=== PATIENT | male | born 1995 | race Caucasian/White ===

== ENCOUNTER 2018-11-02 01:36 | Emergency (ER) | payer MEDICAID ==
[~2018-11-02] VITALS: Ht 172.7 cm; Wt 63.8 kg
[2018-11-02 01:37] VITALS: Ht 172.7 cm; Wt 63.8 kg
[2018-11-02] MEDS ORDERED: KETOROLAC 30 MG INJ IV STA (01:48)
[2018-11-02] MEDS ORDERED: SOD CHLORIDE 0.9% 1,000 ML IV STA (01:48)
[2018-11-02] MEDS ORDERED: ONDANSETRON 4 MG INJ IV STA (01:48)
[2018-11-02] MEDS ORDERED: morphine 4 MG/ML VIAL IV STA (01:48)
--- NOTE | 2018-11-02 02:41 | ERD ---
ER Documentation Chief Complaint Chief Complaint Severe abd pain that started tonight denies n/v/d HPI 23-year-old male presents with complaint of right lower quadrant pain that started this morning. Patient states that he went to another clinic and they gave him 2 pills but the pills made his pain worse. After that patient went and saw the [employer]. Now patient is in the ER. Patient denies having any history of abdominal pain or GI issues. Patient denies any nausea, vomiting, diarrhea, fevers, chills, hematochezia dysuria, hematuria, genital pain. ROS All systems reviewed and are negative except as per history of present illness. Medications Home Meds Active Scripts Polyethylene Glycol* (Miralax*) 17 Gm Powd.pack, 17 GM PO DAILY, #7 Prov:FILIBERTOCYNTHIA 11/02/18 Allergies Allergies: Coded Allergies: No Known Allergy (Unverified , 11/02/18) PMhx/Soc Medical and Surgical Hx: pt denies Medical Hx, pt denies Surgical Hx Hx Alcohol Use: No Hx Substance Use: No Hx Tobacco Use: No Smoking Status: Never smoker FmHx Family History: No diabetes, No coronary disease, No other Physical Exam Vitals Vital Signs Date Temp Pulse Resp B/P (MAP) Pulse Ox O2 O2 Flow FiO2 Time Delivery Rate 11/02/18 98.6 74 16 152/92 98 01:37 (112) Physical Exam Const: No acute distress Head: Atraumatic Eyes: Normal Conjunctiva ENT: Normal External Ears, Nose and Mouth. Neck: Full range of motion. No meningismus. Resp: Clear to auscultation bilaterally Cardio: Regular rate and rhythm, no murmurs Abd: Right lower quadrant tenderness. Right upper quadrant tenderness. Skin: No petechiae or rashes Back: No midline or flank tenderness Ext: No cyanosis, or edema Neur: Awake and alert Psych: Normal Mood and Affect Result Diagram: 11/02/18 0159 11/02/18158 Results 24 hrs Laboratory Tests Test 11/02/18 01:59 White Blood Count 10.6 10^3/ul Red Blood Count 4.64 10^6/ul Hemoglobin 13.6 g/dl Hematocrit 40.9 % Mean Corpuscular Volume 88.1 fl Mean Corpuscular Hemoglobin 29.3 pg Mean Corpuscular Hemoglobin Concent 33.3 g/dl Red Cell Distribution Width 13.3 % Platelet Count 260 10^3/UL Mean Platelet Volume 9.3 fl Immature Granulocytes % 0.300 % Neutrophils % 66.4 % Lymphocytes % 23.2 % Monocytes % 5.9 % Eosinophils % 3.8 % Basophils % 0.4 % Nucleated Red Blood Cells % 0.0 /100WBC Immature Granulocytes # 0.030 10^3/ul Neutrophils # 7.0 10^3/ul Lymphocytes # 2.5 10^3/ul Monocytes # 0.6 10^3/ul Eosinophils # 0.4 10^3/ul Basophils # 0.0 10^3/ul Nucleated Red Blood Cells # 0.0 10^3/ul Urine Color YELLOW Urine Clarity CLEAR Urine pH 6.0 Urine Specific [place] 1.027 Urine Ketones NEGATIVE mg/dL Urine Nitrite NEGATIVE mg/dL Urine Bilirubin NEGATIVE mg/dL Urine Urobilinogen NEGATIVE mg/dL Urine Leukocyte Esterase NEGATIVE Rachel/ul Urine Hemoglobin NEGATIVE mg/dL Urine Glucose NEGATIVE mg/dL Urine Total Protein NEGATIVE mg/dl Sodium Level 143 mmol/L Potassium Level 3.9 mmol/L Chloride Level 107 mmol/L Carbon Dioxide Level 26 mmol/L Anion Gap 10 Blood Urea Nitrogen 19 mg/dl Creatinine 1.35 mg/dl Est Glomerular Filtrat Rate mL/min > 60 mL/min Glucose Level 122 mg/dl Calcium Level 9.0 mg/dl Total Bilirubin 0.8 mg/dl Direct Bilirubin 0.00 mg/dl Indirect Bilirubin 0.8 mg/dl Aspartate Amino Transf (AST/SGOT) 38 IU/L Alanine Aminotransferase (ALT/SGPT) 35 IU/L Alkaline Phosphatase 99 IU/L Total Protein 8.1 g/dl Albumin 4.4 g/dl Globulin 3.70 g/dl Albumin/Globulin Ratio 1.18 Lipase 134 U/L Current Medications Medications Dose Sig/Carmelina Start Time Status Last (Trade) Ordered Route PRN Stop Time Admin Dose Reason Admin Sodium 1,000 ml @ Q1H STAT 11/02/18 DC 11/02/18 Chloride 1,000 mls/hr IV 01:48 11/02/18 02:11 02:47 Morphine 4 mg ONCE STAT 11/02/18 DC 11/02/18 Sulfate IV 01:48 11/02/18 02:06 (morphine) 01:52 Ondansetron 4 mg ONCE STAT 11/02/18 DC 11/02/18 HCl (Zofran IV 01:48 11/02/18 02:06 Inj) 01:52 Ketorolac 30 mg ONCE STAT 11/02/18 DC 11/02/18 Tromethamine IV 01:48 11/02/18 02:06 (Toradol) 01:52 17 gm ONCE ONCE 11/02/18 Polyethylene PO 04:30 11/02/18 Glycol 04:31 (Miralax) Procedures/MDM DIAGNOSTIC IMAGING REPORT Patient: DARREN LOPES : 1995 Age: 23 Sex: M MR #: [id number] DOS: 11/02/18 0148 Ordering MD: CYNTHIA DE LOS SANTOS Location: [facility] Room/Bed: PROCEDURE: ULTRASOUND LIMITED ABDOMEN CLINICAL INDICATION: 23-year-old male with abdominal pain. TECHNIQUE: Multiple sonographic of the right upper quadrant of the abdomen were obtained. The images were reviewed on a PACS workstation. COMPARISON: None. FINDINGS: The pancreas is partially visualized and is otherwise without abnormal echogenicity. The liver displays normal echogenicity. The liver measures 16.2 cm in length. No evidence of intrahepatic biliary ductal dilatation is seen. The portal and hepatic veins are unremarkable. The gallbladder demonstrates no wall thickening, sludge, nor stones. No pericholecystic fluid is seen. The common bile duct measures 3.8 mm and is not dilated. The right kidney displays normal echogenicity. The right kidney measures 10.6 cm in maximal length. No caliectasis or hydronephrosis is seen. No free fluid is seen. IMPRESSION: Unremarkable right upper quadrant abdominal ultrasound. .Julius Green MD, Date Time Electronically viewed and signed by .Julius Green MD, on 11/02/2018 03:46 .M/ CC: CYNTHIA DE LOS SANTOS [id number] DIAGNOSTIC IMAGING REPORT Patient: DARREN LOPES : 1995 Age: 23 Sex: M MR #: [id number] DOS: 11/02/18 0148 Ordering MD: CYNTHIA DE LOS SANTOS Location: [facility] Room/Bed: PROCEDURE: CT ABDOMEN/PELVIS WITHOUT CONTRAST CLINICAL INDICATION: 23-year-old male with right-sided abdominal pain and diarrhea. TECHNIQUE: The study was performed utilizing a GE MagTagpeed VCT 64-slice CT scanner. Direct axial sections were obtained through the abdomen and pelvis without the use of intravenous contrast material. Sagittal and coronal reformations were obtained. One or more of the following dose reduction techniques were utilized: automated exposure control, adjustment of the mA and/or kV according to patient's size, use of iterative reconstruction technique. DICOM images are available. The images were reviewed on a PACS workstation. CTD/vol = 5.06 mGy; Total Exam DLP = 297.81 mGy.cm. COMPARISON: Right upper quadrant ultrasound November 02, 2018 at 02:10 a.m. FINDINGS: There is trace right basilar subsegmental atelectasis.. There is no evidence for significant pleural effusion. The liver has a normal size and contour without focal areas of abnormal density. No intrahepatic nor extrahepatic biliary ductal dilatation is seen. The gallbladder appears to be distended but without evidence for calcified stones, significant wall thickening or pericholecystic fluid. The pancreas is without areas of abnormal attenuation. The spleen is identified and has a normal size without abnormal density. The adrenal glands are unremarkable. The kidneys are without abnormal density. No hydroureteronephrosis nor nephroureterolithiasis is evident. The urinary bladder contains urine. There are multiple small radiopaque foreign bodies within the stomach presumably representing ingested material. There is mild retained stool within the colon without obstruction. The appendix is visualized and is without abnormal thickening or surrounding inflammatory reaction. The prostate is not enlarged. There is no significant free fluid. The aortoiliac vessels are without aneurysmal dilatation. There are bilateral L5 pars interarticularis defects. There is no significant L5-S1 anterolisthesis however there is diffuse disc bulge resulting in moderate bilateral foraminal stenosis. IMPRESSION: 1. Multiple radiopaque foreign bodies within the stomach most likely representing ingested material. 2. No CT evidence for obstructive uropathy or renal calculi. 3. Retained stool without obstruction. 4. No CT evidence for appendicitis. 5. Bilateral L5 pars interarticularis defects with L5-S1 discogenic disease and diffuse disc bulge resulting in moderate bilateral foraminal stenosis. .Julius Green MD, Date Time Electronically viewed and signed by .Julius Green MD, on 11/02/2018 04:02 .M/ CC: CYNTHIA DE LOS SANTOS [id number] MDM: Ultrasound and CT results within normal limits except for some radiopaque foreign body seen in CT. I discussed the case my supervising physician and he stated that the foreign bodies were probably just the pills that he took before hand. In addition Dr. Rodriguez is aware of patient's elevated creatinine time of discharge. Dr. Rodriguez advised that the patient should come back tomorrow for repeat x-ray. Dr. rodriguez explained this to the patient and patient agreed that he would. I have low suspicion for acute coronary syndrome, AAA, mesenteric ischemia, lower lobe pneumonia, DKA, bowel perforation, cholecystitis, choledocholithiasis, ascending cholangitis, hepatic abscess, pancreatitis, PUD, splenic rupture, diverticulitis, pyelonephritis, nephrolithiasis, appendicitis, testicular torsion, acute renal failure. At this time, patient is stable for discharge and outpatient management. I have instructed the patient to follow-up with his/her primary care physician in 1-2 days as well as return tomorrow for follow-up exam. I have discussed with the patient the possibility of needing to see a specialist for further workup and imaging studies if symptoms persist. I have instructed the patient to promptly return to the ER for any new or worsening symptoms including but not limited to increased pain, fever, nausea, vomiting, weakness or LOC. The patient and/or family expressed understanding of and agreement with this plan. All questions were answered. Home care instructions were provided. Communication with patient both during the exam and instructions for discharge were performed with using a theater projectionist . Patient gave verbal confirmation to the practitioner, through the theater projectionist, that they understood everythign that was being said to them. DISCLAIMER: Inadvertent spelling and grammatical errors are likely due to EHR/dictation software use and do not reflect on the overall quality of patient care. Also, please note that the electronic time recorded on this note does not necessarily reflect the actual time of the patient encounter. Departure Diagnosis: Primary Impression: Abdominal pain Abdominal location: right lower quadrant Qualified Codes: R10.31 - Right lower quadrant pain Additional Impression: Elevated serum creatinine Condition: Stable CYNTHIA DE LOS SANTOS Nov 02, 2018 02:41
[2018-11-02] MEDS ORDERED: DICY10CA40 PO (04:11)
[2018-11-02] MEDS ORDERED: POLY17PO6 PO (04:19)
[2018-11-02] MEDS ORDERED: POLYETHYLENE GLYCOL 17 GM PACKET PO ONE (04:30)
[2018-11-02 04:34] VITALS: BP 127/63; PULSE 73; RESP 17
[2018-11-02] MEDS ORDERED: ACET500C5 PO (18:45)
[2018-11-02] MEDS ORDERED: ONDA8TAB14 PO (18:45)
== END 2018-11-02 04:35 | disposition home or self-care (01) ==
LOC: FTE 01:36
DX: R10.31 Right lower quadrant pain (principal); R79.89 Other specified abnormal findings of blood chemistry
CPT/HCPCS: 36415; 74176; 76705; 80053; 81003; 83690; 85025; 96361; 96374; 96375; J1885; J2270; J2405; J7030; Z7502; Z7610

== ENCOUNTER 2018-11-02 16:25 | Emergency (ER) | payer MEDICAID ==
[~2018-11-02] VITALS: Ht 175.3 cm; Wt 64.0 kg
[~2018-11-02 16:25] MED LIST: DICY10CA40 PO; POLY17PO6 PO
[2018-11-02 16:29] VITALS: BP 125/56; PULSE 60; RESP 18; Ht 175.3 cm; Wt 64.0 kg
[2018-11-02] MEDS ORDERED: ONDANSETRON (ODT) 4 MG TAB ODT STA (18:34)
[2018-11-02] MEDS ORDERED: ACETAMINOPHEN 500 MG TAB PO STA (18:34)
[2018-11-02] MEDS ORDERED: ONDA8TAB14 PO (18:45)
[2018-11-02] MEDS ORDERED: ACET500C5 PO (18:45)
--- NOTE | 2018-11-02 18:49 | ERD ---
ER Documentation Chief Complaint Chief Complaint here for recheck on abd pain , feels better today HPI 23-year-old male presents with right-sided abdominal pain since yesterday. He points to the right mid abdomen. Yesterday he had normal labs except for some mild anemia, normal CT scan with only noted for radiopaque material in the stomach, And normal right upper quadrant ultrasound. Patient denies any ingestion of foreign body except for some medication and food. He was discharged with prescription of MiraLAX. He was told to come back today for recheck. He denies fevers, vomiting although has nausea and persistent mild although improved right mid abdominal pain. Denies urinary complaints, diarrhea, additional complaints. ROS All systems reviewed and are negative except as per history of present illness. Medications Home Meds Active Scripts Ondansetron (Ondansetron Odt) 8 Mg Tab.rapdis, 8 MG PO Q6H PRN for NAUSEA AND/OR VOMITING, #6 TAB Prov:SUSAN PHAN MD 11/02/18 Acetaminophen* (Tylophen*) 500 Mg Capsule, 1 CAP PO Q6H PRN for PAIN AND OR ELEVATED TEMP, #15 CAP Prov:SUSAN PHAN MD 11/02/18 Polyethylene Glycol* (Miralax*) 17 Gm Powd.pack, 17 GM PO DAILY, #7 Prov:CYNTHIA DE LOS SANTOS 11/02/18 Allergies Allergies: Coded Allergies: No Known Allergy (Unverified , 11/02/18) PMhx/Soc Medical and Surgical Hx: pt denies Medical Hx, pt denies Surgical Hx Hx Alcohol Use: No Hx Substance Use: No Hx Tobacco Use: No FmHx Family History: No diabetes, No coronary disease, No other Physical Exam Vitals Vital Signs Date Temp Pulse Resp B/P (MAP) Pulse Ox O2 O2 Flow FiO2 Time Delivery Rate 11/02/18 97.4 60 18 125/56 97 16:29 (79) Physical Exam Const: No acute distress Head: Atraumatic Eyes: Normal Conjunctiva ENT: Normal External Ears, Nose and Mouth. Neck: Full range of motion. No meningismus. Resp: Clear to auscultation bilaterally Cardio: Regular rate and rhythm, no murmurs Abd: Soft, non tender, non distended. Normal bowel sounds Skin: No petechiae or rashes Back: No midline or flank tenderness Ext: No cyanosis, or edema Neur: Awake and alert Psych: Normal Mood and Affect Results 24 hrs Current Medications Medications Dose Sig/Carmelina Start Time Status Last (Trade) Ordered Route PRN Stop Time Admin Dose Reason Admin 500 mg ONCE STAT 11/02/18 DC 11/02/18 Acetaminophen PO 18:34 11/02/18 18:46 (Tylenol 18:36 Tab) Ondansetron 8 mg ONCE STAT 11/02/18 DC 11/02/18 HCl (Zofran ODT 18:34 11/02/18 18:46 Odt) 18:36 Procedures/MDM Patient presents for recheck of abdominal pain since yesterday. He has mild residual pain in the right mid abdomen with nausea. He did have some noted radiopaque material in the stomach yesterday but this is not an area of pain and patient exhibits no signs of perforation, additional concerns of congestion for body which she denies except for medication and food. He has no tenderness at McBurney's point no Varma sign. He is otherwise well-appearing. He may have early gastroenteritis or self-limited foodborne illness. He has no signs of surgical abdomen, obstruction, additional concerning signs or symptoms. Will treat with Zofran, Tylenol, further observation at home and return precautions. He is advised to recheck in the next 8 to 12 hours for fevers, vomiting, right lower quadrant abdominal pain. The patient was stable with no new complaints during the ER course. Clinically, there is no current evidence to suggest meningitis, sepsis, acute abdomen, pneumonia, stroke, acute coronary syndrome, pulmonary embolism, aortic dissection or any other emergent condition appearing to require further evaluation or hospitalization. Patient counseled regarding my diagnostic impression and care plan. Prior to discharge all questions answered. Pt agrees with treatment plan and understands strict return precautions. Pt is instructed to follow up with primary care provider within 24- 48 hours. Precautionary instructions provided including instructions to return to the ER if not improving or for any worsening or changing symptoms or concerns. Disclaimer: Inadvertent spelling and grammatical errors are likely due to EHR/dictation software use and do not reflect on the overall quality of patient care. Also, please note that the electronic time recorded on this note does not necessarily reflect the actual time of the patient encounter. Departure Diagnosis: Primary Impression: Abdominal pain Abdominal location: unspecified location Qualified Codes: R10.9 - Unspecified abdominal pain Condition: Stable Patient Instructions: Abdominal Pain Ref[facility] Usted se zelaya hecho un examen mdico de control que le indica que no est en grant condicin que requiera tratamiento urgente en el Departamento de Emergencia. Un estudio ms profundo y el tratamiento de mckeon condicin pueden esperar sin ningn riesgo hasta que usted sea atendida/o en el consultorio de mckeon mdico o grant clnica. Es responsabilidad suya arreglar grant esperanza para el seguimiento del kristin. MANEJO DE CONDICIONES NO URGENTES EN EL FUTURO 1) Si usted tiene un mdico de atencin primaria: Usted debera llamar a mckeon mdico de atencin primaria antes de venir al departamento de emergencia. Despus de las horas de consultorio, mckeon doctor o mckeon asociado/a est disponible por telfono. El mdico o enfermero de eagle en el servicio telefnico puede asesorarle por johnny medio para atender el problema, o kristin contrario se puede programar grant esperanza. 2) Si usted no tiene un mdico de atencin primaria: Llame al mdico o clnica de referencia que aparece abajo kathi las horas de consultorio para hacer grant esperanza para que le vean. CLINICAS: [facility] [phone] [facility] [phone] [facility]. [facility] [phone] [facility] [place] [id number] [phone] [facility] [place] [id number] [phone] [facility]. [phone] Additional Instructions: Horita los examines dice no tiene appendicits o emferma mal, cassandra es importante coma esta en el proximo jaspreet. chequ 8-12 horas par mas dolor, especialamente derecho y abajo vomito , fiebre, nueva simptomas. . Cheque otro vez con mckeon doctor primario en el proximo camargo or regresa para mas o nueva simptomas. SUSAN PHAN MD Nov 02, 2018 18:49
== END 2018-11-02 19:35 | disposition home or self-care (01) ==
LOC: FTE 16:25
DX: R10.9 Unspecified abdominal pain (principal)
CPT/HCPCS: Z7502; Z7610; 99283